=== PATIENT | female | born 2000 | race Caucasian/White ===

== ENCOUNTER 2020-12-18 20:29 | Emergency (ER) | payer SELFPAY ==
[~2020-12-18] VITALS: Ht 152.4 cm; Wt 75.0 kg
[2020-12-18 20:49] VITALS: BP 116/89
[2020-12-18 22:03] LABS: INFLUENZA A PATIENT NEGATIVE (NEGATIVE); INFLUENZA B PATIENT NEGATIVE (NEGATIVE)
--- NOTE | 2020-12-18 22:18 | PHYS DOC ---
Past History Past Medical History: No Pertinent History (ELI COX MD) Past Surgical History: Other Additional Past Surgical Histo: back surgery (ELI COX MD) Alcohol Use: Occasionally (ELI COX MD) Adult General Chief Complaint Chief Complaint: FEVER [facility] Patient is a [age] year old [sex] who presents with [] (ELI COX MD) HPI 20-year-old female who presents to the emergency department complaining of fever and chills over the past 2 days. Patient reports a fever at home just prior to arrival of 101.3. Patient also complains of a new loss of taste and loss of smell that started today. Patient denies any chest pain, chest congestion, shortness of breath, chest palpitations. Patient denies any nasal congestion, denies sore throat, denies ear pain or head pain. Patient denies headaches. Patient denies body aches or general malaise. Patient denies new rashes of her skin. Patient denies any increased thirst or increased urination. Patient denies allergies to medications, states she does not take any prescription medications at home. Patient states she lives at home with her daughter, and her 2-1/2-year-old daughter is having similar symptoms that she. Patient denies any other physical complaints or physical concerns. (GERHARD PORTER APRN) Review of Systems Review of Systems Constitutional: Denies fever or chills [] Eyes: Denies change in visual acuity, redness, or eye pain [] HENT: Denies nasal congestion or sore throat [] Respiratory: Denies cough or shortness of breath [] Cardiovascular: No additional information not addressed in HPI [] GI: Denies abdominal pain, nausea, vomiting, bloody stools or diarrhea [] : Denies dysuria or hematuria [] Musculoskeletal: Denies back pain or joint pain [] Integument: Denies rash or skin lesions [] Neurologic: Denies headache, focal weakness or sensory changes [] Endocrine: Denies polyuria or polydipsia [] All other systems were reviewed and found to be within normal limits, except as documented in this note. (ELI COX MD) Review of Systems 14 body systems of review of systems have been reviewed. See HPI for pertinent positives and negative responses, otherwise all other systems are negative, nonpertinent or noncontributory. (GERHARD PORTER APRN) Current Medications Current Medications Patient denies taking prescription medications at home. (GERHARD PORTER APRN) Allergies Allergies Allergies Coded Allergies Type Severity Reaction Last Updated Verified No Known Drug Allergies 12/18/20 No (ELI COX MD) Allergies Patient denies allergies to medications. (GERHARD PORTER APRN) Physical Exam Physical Exam Constitutional: Well developed, well nourished, no acute distress, non-toxic appearance. [] HENT: Normocephalic, atraumatic, bilateral external ears normal, oropharynx moist, no oral exudates, nose normal. [] Eyes: PERRLA, EOMI, conjunctiva normal, no discharge. [] Neck: Normal range of motion, no tenderness, supple, no stridor. [] Cardiovascular:Heart rate regular rhythm, no murmur [] Lungs & Thorax: Bilateral breath sounds clear to auscultation [] Abdomen: Bowel sounds normal, soft, no tenderness, no masses, no pulsatile masses. [] Skin: Warm, dry, no erythema, no rash. [] Back: No tenderness, no CVA tenderness. [] Extremities: No tenderness, no cyanosis, no clubbing, ROM intact, no edema. [] Neurologic: Alert and oriented X 3, normal motor function, normal sensory function, no focal deficits noted. [] Psychologic: Affect normal, judgement normal, mood normal. [] (ELI COX MD) Physical Exam Constitutional: Well developed, well nourished, no acute distress, non-toxic appearance. 20-year-old female in no apparent distress. HENT: Normocephalic, atraumatic, bilateral external ears normal, oropharynx moist, no oral exudates, nose normal. Oropharynx pink, no postnasal drip, no infectious process appreciated. There is no lymphadenopathy of the head or neck. Eyes: PERRLA, EOMI, conjunctiva normal, no discharge. Neck: Normal range of motion, no tenderness, supple, no stridor. Cardiovascular:Heart rate regular rhythm, no murmur Lungs & Thorax: Bilateral breath sounds clear to auscultation, patient speaking in full sentences, no adventitious lung sounds appreciated. Abdomen: Bowel sounds normal, soft, no tenderness, no masses, no pulsatile masses. Skin: Warm, dry, no erythema, no rash. Back: No tenderness, no CVA tenderness. Extremities: No tenderness, no cyanosis, no clubbing, ROM intact, no edema. Neurologic: Alert and oriented X 3, normal motor function, normal sensory function, no focal deficits noted. Psychologic: Affect normal, judgement normal, mood normal. (GERHARD PORTER APRN) Current Patient Data Vital Signs Vital Signs Date Time Temp Pulse Resp B/P (MAP) Pulse Ox O2 Delivery O2 Flow Rate FiO2 12/18/20 20:49 98.0 88 16 116/89 (98) 95 Room Air Lab Results Laboratory Tests Test 12/18/20 21:05 Influenza Type A (Rapid) Negative (NEGATIVE) Influenza Type B (Rapid) Negative (NEGATIVE) (ELI COX MD) EKG EKG [] (ELI COX MD) Radiology/Procedures Radiology/Procedures [] (ELI COX MD) Heart Score Risk Factors: Risk Factors: DM, Current or recent (<one month) smoker, HTN, HLP, family history of CAD, obesity. Risk Scores: Risk Factors: DM, Current or recent (<one month) smoker, HTN, HLP, family history of CAD, obesity. (ELI COX MD) C/O Chest Pain: No (GERHARD PORTER APRN) Course & Med Decision Making Course & Med Decision Making Agree with MANAGER WASTEWATER's work-up and disposition. [] (ELI COX MD) Course & Med Decision Making 20-year-old female, vital signs reviewed, presents to the emergency department concerning of new loss of taste and smell with fever at home. Patient's vital signs during examination are unremarkable, she was afebrile. Patient states she had a negative COVID-19 virus test in September 2020 and denies recent exposure to anyone with the COVID-19 virus, however patient is amenable to a rapid flu test and a COVID-19 virus routine test today in the emergency department. Patient's rapid flu A/B negative, COVID-19 virus test pending. Discussed with patient diagnosis of PUI versus viral syndrome illness. Patient gave verbal understanding of discharge home instructions, Covid 19 PUI isolation instructions, follow-up with primary care soon, return to ER precautions or concerns. Patient remains nontoxic throughout her ED stay. Patient is in no apparent distress. Discussed patient case with ED attending Dr. Cox who interviewed patient at bedside and formulated and completed departure note and home instructions for patient. (GERHARD PORTER APRN) Sha Disclaimer Sha Disclaimer This electronic medical record was generated, in whole or in part, using a voice recognition dictation system. (ELI COX MD) Departure Departure: Impression: Primary Impression: Viral syndrome Disposition: 01 DC HOME SELF CARE/HOMELESS Condition: GOOD Referrals: PCP,NO (PCP) Patient Instructions: Viral Syndrome Additional Instructions: You have been tested for COVID-19. It is an infection caused by a new type of coronavirus. COVID-19 will cause cold-like or mild flu symptoms in most. It can cause more severe symptoms like problems breathing in some. There is no treatment for COVID-19. The body will clear the infection over time. Self-care will help to ease discomfort. Steps to Take: Self-Care Rest as needed. Healthy habits may help you feel better. Steps include: Choose healthy foods including fruits and vegetables. Drink water throughout the day. Get plenty of sleep each night. If you smoke, try to quit. It may ease breathing. Avoid alcohol. Keep Others Healthy The virus can spread to others. Droplets are released every time you sneeze or cough. The droplets can get into the mouth, nose, or eyes of people near you and lead to infection. To lower the chances of spreading COVID-19 to others: Stay at home until your doctor has said it is safe to leave. If you tested positive this will mean staying isolated until both of the following are true: At least 7 days have passed since the start of illness. You are free of fever for at least 72 hours without the use of medicine. During this time: - Avoid public areas, events, or transportation. Do not return to work or school until your doctor has said it is safe to do so. - Call ahead if you need to go to a medical center. Let them know you may have COVID-19. It will help them guide you where to go. They may also ask you to wear a facemask when you come to the office. - If you call for emergency medical services, let them know you may have COVID- 19. While at home: - Try to avoid close contact with others. Stay about 6 feet away. - If possible, spend most of your time in a separate room from others. - Use a face mask if you will be in close contact with others such as sharing a room or vehicle. - Have someone wipe down common surfaces in the home. Use household clinical services specialist every day on areas like doorknobs, counters, or sinks. - Cough or sneeze into a tissue. Throw the tissue away right after use. If a tissue is not available, cough or sneeze into your elbow. - Wash your hands often. Wash them after sneezing or coughing. Use soap and water and wash for at least 20 seconds. Alcohol based hand shield cleaner can be used if soap and water is not available. - Do not prepare food for others. Avoid sharing personal items like forks, spoons, or toothbrushes. - Avoid close contact with pets while you are sick. There is no evidence of the virus passing to pets. This is a safety step until more is known about this virus. Isolation can be frustrating. Social interaction can help. Keep in touch with friends and family through phone and tech options. You can still interact with others in your home, just keep a safe distance of about 6 feet. Follow-up: Your doctors office will check in with you to see if there are any changes in your health. You may be asked to keep track of symptoms to share with them. They will also let you know when you are clear to be in public again. Problems to Look Out For: Contact your doctor if your recovery is not going as you expect. Get emergency care if you have problems such as: - Trouble breathing - Nonstop chest pain or pressure - Changes in awareness, confusion, or problems waking - Lips or face have bluish color - Worsening of symptoms If you think you have an emergency, call for emergency medical services right away. As taken from [facility] ELI Mustafa MD Dec 18, 2020 22:18 GERHARD PORTER APRN Dec 18, 2020 22:35
== END 2020-12-18 22:05 | disposition home or self-care (01) ==
LOC: EDBD 20:29 → ER 20:29
DX: U07.1 COVID-19 (principal); B34.9 Viral infection, unspecified
CPT/HCPCS: 87804; 99283; C9803; U0003

== ENCOUNTER → 2021-06-14 | Outpatient (CLI) | payer BC ==
[2021-06-14 14:33] LABS: BASO # 0.2 x10^3/uL (0.0-0.2); BASO % 2 % (0-3); EOS # 0.1 x10^3/uL (0.0-0.7); EOS % 2 % (0-3); HEMATOCRIT 44.3 % (36.0-47.0); HEMOGLOBIN 14.7 g/dL (12.0-15.5); LYMPH # 1.9 x10^3/uL (1.0-4.8); LYMPH % 19 % (24-48); MEAN CORPUSCULAR HEMOGLOBIN 30 pg (25-35); MEAN CORPUSCULAR HGB CONC 33 g/dL (31-37); MEAN CORPUSCULAR VOLUME 89 fL (79-100); MONO # 0.6 x10^3/uL (0.0-1.1); MONO % 6 % (0-9); NEUT # 7.1 x10^3uL (1.8-7.7); NEUT % 72 % (31-73); PLATELET COUNT 307 x10^3/uL (140-400); RED BLOOD COUNT 4.95 x10^6/uL (3.50-5.40); RED CELL DISTRIBUTION WIDTH 13.6 % (11.5-14.5); WHITE BLOOD COUNT 9.8 x10^3/uL (4.0-11.0)
[2021-06-15 17:53] LABS: FREE T4 1.11 ng/dL (0.76-1.46); THYROID STIM HORMONE (TSH) 2.17 uIU/mL (0.358-3.740)
[2021-06-15 18:23] LABS: RUBELLA IGG ANTIBODY 2.77 index (Immune >0.99)
== END ==
LOC: LAB 13:33
PROVIDERS: ATTEND Obstetrics & Gynecology
DX: Z34.91 Encounter for supervision of normal pregnancy, unspecified, first trimester (principal); Z3A.00 Weeks of gestation of pregnancy not specified
CPT/HCPCS: 81220; 84439; 84443; 84702; 85025; 85660; 86592; 86703; 86762; 86787; 86803; 86850; 86900; 86901; 87350

== ENCOUNTER → 2021-06-28 | Outpatient (CLI) | payer BC ==
--- NOTE | 2021-06-28 10:39 | RAD ---
EXAM: Obstetrics sonogram. HISTORY: Unsure dates. TECHNIQUE: Transabdominal and transvaginal sonographic imaging of the pelvis was performed. COMPARISON: None. FINDINGS: The uterus measures 9.2 x 5.8 x 4.7 cm. There is a single intrauterine gestational sac with pole and yolk sac. The crown-rump length is 4 mm, corresponding with a gestational age o f 6 weeks and 1 day and due date of 02/20/2022. There is a normal heart rate of 116 bpm. The gest ational sac is normal in configuration and location. The yolk sac is normal in size and configuration . No subchronic hematoma is seen. The maternal ovaries are unremarkable. There is no pelvic free flui d. IMPRESSION: Single intrauterine fetus with normal heart rate and gestational age based on ultrasound measurements of 6 weeks and 1 day. Electronically signed by: Yvonne Naik MD (06/28/2021 10:36 AM) [id number]
== END ==
LOC: US 09:43
PROVIDERS: ATTEND Obstetrics & Gynecology
DX: Z34.91 Encounter for supervision of normal pregnancy, unspecified, first trimester (principal); Z3A.00 Weeks of gestation of pregnancy not specified
CPT/HCPCS: 76801; 76817